=== PATIENT | male | born 1990 | race Hispanic/Latino ===

== ENCOUNTER 2021-11-18 10:35 | Emergency (ER) | payer OTHER ==
[~2021-11-18] VITALS: Ht 177.8 cm; Wt 108.9 kg
[2021-11-18] MEDS ORDERED: COLACE100 MG PO (10:50)
[2021-11-18] MEDS ORDERED: HEMORRHOID 1%-156 GM TOP (10:50)
[2021-11-18] MEDS ORDERED: MAGNESIUM CITR296 ML PO (10:50)
[2021-11-18] MEDS ORDERED: MIRALAX17 GM PO (10:50)
== END 2021-11-18 11:12 | disposition home or self-care (01) ==
LOC: ER 10:55
DX: K59.00 Constipation, unspecified (principal); K64.9 Unspecified hemorrhoids; F41.9 Anxiety disorder, unspecified
CPT/HCPCS: 99283